=== PATIENT | female | born 2000 | race Two or more races ===

== ENCOUNTER 2021-09-15 21:51 | Emergency (ER) | payer OTHER ==
[~2021-09-15] VITALS: Ht 157.5 cm; Wt 48.5 kg
--- NOTE | 2021-09-15 22:45 | NUR ---
PATIENT BIBRA 85 C/O RUQ AND RLQ ABD PAIN S/P EATING SALAD HX OF RUPTURED OVARIAN CYST X 1 MONTH AGO. TOOK CONTROL PRIOR TO PAIN. PT IS A/O X 4, RR EVEN AND UNLABORED NO SOB NOTED. PATIENT TO ER BED 12. CONNECTED TO MONITORS.
[2021-09-15 22:50] VITALS: BP 119/70
--- NOTE | 2021-09-15 23:23 | NUR ---
URINE COLLECTED SENT TO LAB
--- NOTE | 2021-09-15 23:23 | NUR ---
BLOOD COLLECTED SENT TO LAB
[2021-09-15 23:27] LABS: BILIRUBIN,URINE NEGATIVE (NEGATIVE); COLOR,URINE YELLOW (YELLOW); LEUKOCYTE ESTERASE ,URINE NEGATIVE (NEGATIVE); NITRITE, URINE NEGATIVE (NEGATIVE); PH,URINE 7.5 (5.0-8.0); PROTEIN,URINE NEGATIVE (NEGATIVE); UGLUCOSE NEGATIVE (NEGATIVE); UROBILINOGEN,URINE 0.2 EU/dL (0.2)
[2021-09-15 23:59] LABS: BASOPHILS % (AUTO) 0.2 % (0.0-2.0); EOSINOPHILS % (AUTO) 0.3 % (0.0-6.0); HEMATOCRIT 43 % (33-45); HEMOGLOBIN 14.7 g/dL (11.5-14.8); LYMPHOCYTES # (AUTO) 1.3 K/uL (0.8-4.8); LYMPHOCYTES % (AUTO) 11.9 % (20.0-44.0); MEAN CORPUSCULAR HGB CONC 34 g/dl (31.0-36.0); MEAN CORPUSCULAR VOLUME 89 fL (82-100); MONOCYTES # (AUTO) 0.4 K/uL (0.1-1.30); MONOCYTES % (AUTO) 3.5 % (2.0-12.0); NEUTROPHILS # (AUTO) 9.3 K/uL (1.8-8.9); NEUTROPHILS % (AUTO) 84.1 % (43.0-81.0); PLATELET COUNT (AUTO) 225 K/uL (150-450); RED BLOOD CELL COUNT(AUTO) 4.86 MIL/uL (4.0-5.2); WHITE BLOOD COUNT (AUTO) 11.1 K/uL (4.3-11.0)
--- NOTE | 2021-09-16 00:06 | NUR ---
US AT BEDSIDE
[2021-09-16 00:16] LABS: ALBUMIN 4.2 g/dL (3.4-5.0); BILIRUBIN,DIRECT 0.1 mg/dL (0.0-0.2); BILIRUBIN,TOTAL 0.5 mg/dL (0.2-1.0); CALCIUM, SERUM 9.1 mg/dL (8.5-10.1); CREATININE 0.7 mg/dL (0.6-1.3); POTASSIUM 3.9 mmol/L (3.5-5.1)
[2021-09-16] MEDS ORDERED: IBUP-1957 PO (01:56)
--- NOTE | 2021-09-16 02:04 | NUR ---
Patient discharged to home in stable condition. Written and verbal after care instructions given. Patient verbalizes understanding of instruction.
== END 2021-09-16 02:04 | disposition home or self-care (01) ==
LOC: ER 21:54
DX: I88.0 Nonspecific mesenteric lymphadenitis (principal); Z87.42 Personal history of other diseases of the female genital tract; Z79.1 Long term (current) use of non-steroidal anti-inflammatories (NSAID)
CPT/HCPCS: 36415; 76856-TC; 80048-TC; 80076-TC; 84703-TC; 85025-TC; 85730-TC